=== PATIENT | female | born 1940 | race Caucasian/White ===

== ENCOUNTER → 2020-01-23 | Outpatient (CLI) | payer MEDICARE, OTHER ==
--- NOTE | 2020-01-23 16:47 | DIREP ---
This report includes an Addendum and supersedes previous reports for this exam. PROCEDURE:MRI SPINE LUMBAR W/O COMPARISON:None. INDICATIONS:LUMBAR RADICULOPATHY TECHNIQUE:A comprehensive examination was performed utilizing a variety of imaging planes and imaging parameters to optimize visualization of suspected pathology. Images were performed without intravenous gadolinium contrast. FINDINGS: ALIGNMENT:Advanced scoliosis of the lumbar spine, degenerative in nature. Grade 1 retrolisthesis L4 on L5. Grade 1 anterolisthesis L5 on next 6. VERTEBRA:No acute fracture. Multilevel Modic 1 endplate changes most prominently about the right aspect of L3-L4 and L4-5. Bilateral pars defects at L5 suspected CORD/CAUDA EQUINA:Normal size, contour, and signal intensity. PARASPINAL AREA:Normal with no visible mass. OTHER:None. LUMBAR DISC LEVELS T12-L1:Moderate to advanced bilateral facet disease circumferential disc bulge. Moderate right neural foraminal narrowing mild spinal canal narrowing. L1-L2:Circumferential disc bulge with mild bilateral facet disease. Moderate to severe left and moderate right neural foraminal narrowing. Mild spinal canal narrowing. L2-L3:Moderate bilateral facet disease. Circumferential disc bulge. Severe bilateral neural foraminal impingement. Moderate spinal canal narrowing. L3-L4:Circumferential disc bulge with moderate facet disease. Severe right and moderate to severe left neural foraminal impingement. Moderate to severe spinal canal impingement. L4-L5:Advanced bilateral facet disease circumferential disc bulge. Severe bilateral neural foraminal narrowing, right greater than left. Severe spinal canal narrowing. L5-S1:Uncovering of the posterior intervertebral disc with advanced facet disease. Severe bilateral neural foraminal narrowing, right greater than left. Moderate to severe spinal canal narrowing CONCLUSION:Multilevel advanced degenerative changes as detailed above Dictated by: Feliciano Mckeon DO on 01/23/2020 at 04:40 PM NDUM: There is a typo in the above body of the report. There are 5 lumbar vertebral body levels. The anterolisthesis mentioned above is at L5-S1. Remainder findings conclusion remains ascending Dictated by: Feliciano Mckeon DO on 01/28/2020 at 08:47 AM
--- NOTE | 2020-01-24 04:19 | DIREP ---
PROCEDURE:MRI SPINE THORACIC W/O COMPARISON:None. INDICATIONS:CHRONIC PAIN SYNDROME TECHNIQUE:A variety of imaging planes and parameters were utilized for visualization of suspected pathology. Images were performed without contrast. FINDINGS: VERTEBRAE:Mild anterior osteophyte formation in the lower thoracic spine. No fractures or destructive lesions. ALIGNMENT:Normal. DISCS:Mild posterior disc bulges at C6-7, T9-T10, T10-T11, T11-12 and T12-L1 but no significant central canal or foraminal stenosis. SPINAL CORD/CONUS:Normal. PARASPINAL AREA:Normal. CONCLUSION:Multiple small posterior disc bulges as described above but no central canal or foraminal stenosis. No significant osseous abnormalities. Dictated by: Bebo Stevens M.D. on 01/24/2020 at 04:15 AM
== END | disposition home or self-care (01) ==
LOC: RAD 10:08
PROVIDERS: ATTEND Nurse Practitioner
DX: M47.26 Other spondylosis with radiculopathy, lumbar region (principal); G89.4 Chronic pain syndrome; M25.78 Osteophyte, vertebrae
CPT/HCPCS: 72146; 72148

== ENCOUNTER → 2020-09-16 | Outpatient (CLI) | payer MEDICARE, OTHER ==
--- NOTE | 2020-09-17 08:30 | DIREP ---
PROCEDURE: CT SPINE LUMBAR W/O TECHNIQUE:Axial cuts were obtained through the lumbar spine. The images were viewed at bone settings. COMPARISON:[facility], SPINE LUMBAR 2 -3 VIEW, 02/09/2016, 09:53 AM. [facility], MR, MRI SPINE LUMBAR W/O, 01/23/2020, 11:13 AM. INDICATIONS:M54.16 RADICULOPATHY LUMBAR REGION FINDINGS: ALIGNMENT:There is significant dextroscoliosis of the lumbar spine with angle of dextroscoliosis being 25.7 as measured from the superior cortex of L1 to the inferior cortex of L4. There is 8 mm retrolisthesis of L4 on L5 and 8 mm anterolisthesis of L5 on S1 as seen on the sagittal images. There is loss of lumbar lordosis. VERTEBRAE:Note is made of dorsal column stimulator entering through the the interspinous space at T12-L1. Significant narrowing of the intervertebral disc space with vacuum phenomenon and vertebral endplate sclerosis at L2-3, L3-4. Vacuum phenomenon also seen at L4-5 and L5-S1. Large ventral osteophytes in the lower thoracic and lumbar spine. No acute compression fractures are seen. PARASPINAL AREA:The stomach is significantly distended with food. Small hiatal hernia noted. No renal stones or hydronephrosis is seen. Tortuous aorta. No aneurysm is seen. OTHER:No additional findings. LUMBAR DISC LEVELS T11-T12: The neural foramen on the right side is not adequately profiled but findings are indicative of narrowing of the intervertebral foramen and lateral recess to a severe extent. No focal disc is seen. Neural foramina and lateral recess on the left side show no significant narrowing. Mild facet and ligamenta flava hypertrophy noted. No focal disc is seen. T12-L1:Minimal disc bulge asymmetric to the right. No focal disc. Minimal narrowing of neural foramen on the right side. Moderate facet and ligamenta flava hypertrophy noted. The leads of the dorsal column stimulator noted. No central stenosis. L1-L2:Mild generalized disc bulge. Mild narrowing of neural foramina. Moderate lateral recess narrowing seen. No focal disc. No central stenosis. Mild facet and ligamenta flava hypertrophy noted. L2-L3:Narrowing of the disc space, vacuum phenomenon and ventral and posterior osteophytes noted. Vertebral endplate sclerosis. Severe narrowing of the neural foramen and lateral recesses on the left side. No focal disc is seen. No central stenosis. Moderate facet and ligamenta flava hypertrophy especially on the left side. L3-L4:Disc bulge on the left side with severe narrowing of neural foramen and lateral recess on the left side and moderate narrowing of the neural foramen and lateral recesses on the right side. Moderate central stenosis. The midsagittal diameter of the spinal canal is 9 mm. Moderate facet and ligamenta flava hypertrophy noted. L4-L5:8 mm degenerative retrolisthesis of L4 on L5. Generalized disc bulge noted. Moderate central stenosis. Narrowing of neural foramen and lateral recesses to a moderate to severe extent bilaterally. Moderate facet and ligamenta flava hypertrophy noted. L5-S1:8 mm anterolisthesis of L5 on S1. Generalized disc bulge. Severe narrowing of neural foramen and lateral recesses. Moderate facet and ligamenta flava hypertrophy noted. Moderate central stenosis seen. CONCLUSION: No definite focal disc herniation is seen. Multilevel narrowing of neural foramen and lateral recesses, some of them to a severe extent as described above. Moderate central stenosis at L3-4, L4-5. Severe dextroscoliosis, degenerative retrolisthesis of L4 on L5 and anterolisthesis of L5 on S1 by 8 mm as described above. No acute compression fractures are seen. Facet disease throughout the lumbar spine. If clinically indicated a follow-up MRI of the lumbar spine and/or lumbar myelogram is recommended. Dictated by: Dash Henderson MD on 09/17/2020 at 08:16 AM
== END | disposition home or self-care (01) ==
LOC: RAD 14:22
PROVIDERS: ATTEND Family Medicine Sports Medicine
DX: M43.17 Spondylolisthesis, lumbosacral region (principal); M41.86 Other forms of scoliosis, lumbar region; M51.17 Intervertebral disc disorders with radiculopathy, lumbosacral region; M48.07 Spinal stenosis, lumbosacral region; M47.27 Other spondylosis with radiculopathy, lumbosacral region
CPT/HCPCS: 72131